=== PATIENT | female | born 1985 | race Caucasian/White ===

== ENCOUNTER 2017-03-10 15:16 | Emergency (ER) | payer OTHER ==
[~2017-03-10] VITALS: Wt 90.0 kg
[~2017-03-10 15:16] MED LIST: PRENAT PO
[2017-03-10] MEDS ORDERED: ONDANSETRON 4 MG INJ IV STA (15:58)
[2017-03-10] MEDS ORDERED: SOD CHLORIDE 0.9% 1,000 ML IV STA (15:58)
[2017-03-10] MEDS ORDERED: KETOROLAC 30 MG INJ IV STA (15:58)
[2017-03-10 16:25] LABS: ADD SCAN DIFF NO
[2017-03-10 16:27] LABS: BASOPHILS % 0.2 % (0.0-2.0); EOSINOPHILS # 0.1 10^3/ul (0.0-0.5); EOSINOPHILS % 0.5 % (0.0-7.0); HEMATOCRIT 34.6 % (37.0-47.0); HEMOGLOBIN 10.8 g/dl (12.0-16.0); LYMPHOCYTES # 1.4 10^3/ul (0.8-2.9); LYMPHOCYTES % 12.3 % (15.0-51.0); MEAN CORPUSCULAR HEMOGLOBIN 24.5 pg (29.0-33.0); MEAN CORPUSCULAR HGB CONC 31.2 g/dl (32.0-37.0); MEAN CORPUSCULAR VOLUME 78.5 fl (82.0-101.0); MONOCYTE # 0.3 10^3/ul (0.3-0.9); MONOCYTES % 2.5 % (0.0-11.0); NEUTROPHIL # 9.7 10^3/ul (1.6-7.5); NEUTROPHILS % 84.2 % (39.0-77.0); PLATELET COUNT 309 10^3/UL (140-415); RED BLOOD COUNT 4.41 10^6/ul (4.20-5.40); RED CELL DISTRIBUTION WIDTH 16.6 % (11.5-14.5); WHITE BLOOD COUNT 11.5 10^3/ul (4.8-10.8)
[2017-03-10 16:29] LABS: ADD UMIC YES; URINE BILIRUBIN (Dip) NEGATIVE (NEGATIVE); URINE BLOOD (Dip) TRACE (NEGATIVE); URINE COLOR LT. YELLOW (YELLOW); URINE GLUCOSE (Dip) NEGATIVE (NEGATIVE); URINE KETONES (Dip) NEGATIVE (NEGATIVE); URINE LEUKOCYTE ESTERASE (Dip) NEGATIVE (NEGATIVE); URINE NITRITE (Dip) NEGATIVE (NEGATIVE); URINE TOTAL PROTEIN (Dip) NEGATIVE (NEGATIVE); URINE UROBILINOGEN (Dip) 0.2 E.U./dL (0.1-1.0)
[2017-03-10 16:44] LABS: BACTERIA,URINE FEW; SQUAMOUS EPITHELIAL CELL,UR MODERATE
[2017-03-10 16:45] LABS: URINE RBCS 0-2 /HPF (0)
--- NOTE | 2017-03-10 16:55 | RADRPT ---
PROCEDURE: US Abdomen. CLINICAL INDICATION: Abdominal pain TECHNIQUE: Multiple real-time images were acquired of the patient's abdomen and retroperitoneum ut ilizing a high resolution transducer. COMPARISON: 01/02/2016 FINDINGS: The liver demonstrates elevated echogenicity with no gross focal lesions are seen. The gallbladder i s resected. No fluid is seen within the gallbladder fossa. No intra or extrahepatic biliary dilatat ion is seen. The common bile duct measures 6 mm in maximal dimension. The pancreas is partially ob scured. No free fluid is identified. The right kidney is unremarkable without hydronephrosis. It measures 10.4 cm. Visualized portion of the aorta and IVC are unremarkable. IMPRESSION: There is fatty infiltration of the liver. Status post cholecystectomy. RPTAT: AA .Cristiana Mora MD, Date Time Electronically viewed and signed by .Cristiana Mora MD, on 03/10/2017 16:55 .J/
[2017-03-10 17:18] LABS: ALBUMIN 4.5 g/dl (3.3-4.9)
[2017-03-10 17:19] LABS: POTASSIUM 3.6 mmol/L (3.5-5.1)
[2017-03-10 17:21] LABS: ALBUMIN/GLOBULIN RATIO 1.04; BILIRUBIN,INDIRECT 0.7 mg/dl (0-1.1); BILIRUBIN,TOTAL 0.7 mg/dl (0.2-1.3); CREATININE 0.61 mg/dl (0.44-1.00); TOTAL PROTEIN 8.8 g/dl (6.1-8.1)
[2017-03-10 17:22] LABS: CALCIUM 8.8 mg/dl (8.4-10.2)
[2017-03-10] MEDS ORDERED: IOHEXOL 300MG/ML 150 ML BTL ONE (17:44)
[2017-03-10] MEDS ORDERED: SOD CHLORIDE 0.9% 100 ML ONE (17:44)
--- NOTE | 2017-03-10 18:26 | RADRPT ---
PROCEDURE: CT abdomen and pelvis with contrast. CLINICAL INDICATION: abdominal pain TECHNIQUE: CT scan of the abdomen and pelvis with contrast [facility] The patient was scanned after administration of 100 cc of Omnipaque-300 intravenous contrast. Sagittal and coronal reformatted images were obtained from the axial source images. One or more of the following dose reduction techniques were used: - Automated exposure control. - Adjustment of the mA and/or kV according to patient size. - Use of iterative reconstruction technique. DLP 974.9 mGycm. CTDIvol 17.3 mGy COMPARISON: None. FINDINGS: The lung bases are clear. There is normal density and enhancement of the liver with no focal lesion or biliary ductal dilatati on. The gallbladder is removed, and the portal vein is intact without thrombus. The spleen is unremarkable without mass. The adrenal glands are within normal limits without mass. The kidneys enhance symmetrically bilaterally without hydronephrosis or perinephric stranding. The pancreas is unremarkable without focal lesion or surrounding inflammatory changes. There is no bowel obstruction or focal bowel inflammation. The appendix is unremarkable. There are surgical changes seen from a prior laparotomy. There is no free air. There is no free fluid. There are no enlarged lymph nodes. The aorta is unremarkable and there is no acute osseous abnormality. The uterus and adnexal structures are grossly within normal limits. Follicular changes seen within t he ovaries bilaterally. IMPRESSION: No evidence of bowel obstruction or inflammation. There is no appendicitis. Surgical changes are seen from prior laparotomy and from cholecystectomy. RPTAT: AA .Cristiana Mora MD, MD Date Time Electronically viewed and signed by .Cristiana Mora MD, MD on 03/10/2017 18:26 .Melquiades/
--- NOTE | 2017-03-10 18:30 | ERD ---
ER Documentation Chief Complaint Date/Time DATE: 03/10/17 Chief Complaint Abdominal pain, Nausea, Vomiting, Fever HPI The patient is a 31-year-old who presents to the Emergency Department with complaint of abdominal pain, nausea and vomiting. The patent reports that approximately 3 days ago she developed a cramping pain to the epigastric region of the abdomen. The pain is constant, cramping, and radiates throughout the abdomen, but is mostly localized to the epigastrium. The pain is associated with nausea, and several episodes of nonbilious, nonbloody emesis. The patient reports three episodes of vomiting yesterday, and four today. Additionally, she notes onset of low-grade fevers today, though has not taken any medication for fever or pain relief. She denies any diarrhea. Denies black or bloody stools. Denies hematemesis. Denies recent travel, stream water exposure, immunocompromised state or recent antibiotic use. Denies hematemesis. Denies dysuria, polyuria, hematuria or flank pain. Denies vaginal bleeding or new vaginal discharge. Denies contacts with similar symptoms. No other complaints at this time. ROS All systems reviewed and are negative except as per history of present illness. Medications Home Meds Active Scripts Famotidine* (Pepcid*) 20 Mg Tablet, 20 MG PO BID, #20 TAB Prov:USAMA GILLIAM PA-C 03/10/17 Acetaminophen* (Tylenol*) 325 Mg Tablet, 1 TAB PO Q6 Y for PAIN AND OR ELEVATED TEMP, #20 TAB Prov:USAMA GILLIAM PA-C 03/10/17 Ondansetron (Ondansetron Odt) 4 Mg Tab.rapdis, 4 MG PO Q6H Y for NAUSEA AND/OR VOMITING, #8 TAB Prov:USAMA GILLIAM PA-C 03/10/17 Reported Medications Multivit/Min/Fol Ac/Iron/Pren* ( S*) 1 Tab Tab, 1 TAB PO DAILY, TAB 02/28/16 Allergies Allergies: Coded Allergies: No Known Allergy (Verified , 02/28/16) PMhx/Soc History of Surgery: Yes ( x1) Anesthesia Reaction: No Hx Neurological Disorder: No Hx Respiratory Disorders: No Hx Cardiac Disorders: No Hx Psychiatric Problems: No Hx Miscellaneous Medical Probl: Yes (Cholecystitis) Hx Alcohol Use: No Hx Substance Use: No Hx Tobacco Use: No Smoking Status: Never smoker Physical Exam Vitals Vital Signs Date Time Temp Pulse Resp B/P Pulse Ox O2 Delivery O2 Flow Rate FiO2 03/10/17 18:42 98.9 82 20 108/88 100 Room Air 03/10/17 15:20 100.0 102 21 126/81 100 Physical Exam GENERAL: Well-developed, well-nourished, in no acute distress HEENT: Head is normocephalic, atraumatic. No scleral pallor or icterus. Pupils equal, round and reactive to light. Conjunctiva pink. Moist mucous membranes. NECK: Supple. Full range of motion. RESPIRATORY: Lungs are clear to auscultation bilaterally. No rales, rhonchi or wheezing. Equal breath sounds. Normal expiratory effort. CARDIOVASCULAR: Regular rate and rhythm. S1 and S2 normal. No murmurs, rubs, or gallops. GASTROINTESTINAL: Abdomen is soft and nondistended. Mild tenderness to palpation over the epigastrium. No guarding, no rebound tenderness. Normal bowel sounds. No gross peritonitis. Negative Singh's sign. No tenderness at McBurney's point. No ecchymosis. FLANK: No CVA tenderness, no mass or swelling. BACK: No midline tenderness. EXTREMITIES: No clubbing, cyanosis, or edema. Normal skin perfusion. Muscle tone is normal. No focal swelling or erythema. NEUROLOGIC: The patient is alert, awake, and oriented x 3. No focal neurologic deficits. INTEGUMENT: Skin is clean, dry and intact. No rashes. No vesicles. PSYCHIATRIC: Appropriate; Cooperative. Result Diagram: 03/10/17 1620 03/10/17 1620 Results 24 hrs Laboratory Tests Test 03/10/17 16:02 03/10/17 16:20 Urine Color LT. YELLOW Urine Clarity SLIGHTLY CLOUDY Urine pH 7.0 Urine Specific [place] 1.010 Urine Ketones NEGATIVE Urine Nitrite NEGATIVE Urine Bilirubin NEGATIVE Urine Urobilinogen 0.2 E.U./dL Urine Leukocyte Esterase NEGATIVE Urine Microscopic RBC 0-2/HPF Urine Microscopic WBC 0-2/HPF Urine Squamous Epithelial Cells MODERATE Urine Bacteria FEW Urine Hemoglobin TRACE Urine Glucose NEGATIVE% Urine Total Protein NEGATIVE White Blood Count 11.510^3/ul Red Blood Count 4.4110^6/ul Hemoglobin 10.8g/dl Hematocrit 34.6% Mean Corpuscular Volume 78.5fl Mean Corpuscular Hemoglobin 24.5pg Mean Corpuscular Hemoglobin Concent 31.2g/dl Red Cell Distribution Width 16.6% Platelet Count 71264^3/UL Mean Platelet Volume 12.0fl Neutrophils % 84.2% Lymphocytes % 12.3% Monocytes % 2.5% Eosinophils % 0.5% Basophils % 0.2% Nucleated Red Blood Cells % 0.0/100WBC Neutrophils # 9.710^3/ul Lymphocytes # 1.410^3/ul Monocytes # 0.310^3/ul Eosinophils # 0.110^3/ul Basophils # 0.010^3/ul Nucleated Red Blood Cells # 0.010^3/ul Sodium Level 140mmol/L Potassium Level 3.6mmol/L Chloride Level 108mmol/L Carbon Dioxide Level 25mmol/L Anion Gap 11 Blood Urea Nitrogen 6mg/dl Creatinine 0.61mg/dl Glucose Level 102mg/dl Calcium Level 8.8mg/dl Total Bilirubin 0.7mg/dl Direct Bilirubin 0.00mg/dl Indirect Bilirubin 0.7mg/dl Aspartate Amino Transf (AST/SGOT) 32IU/L Alanine Aminotransferase (ALT/SGPT) 42IU/L Alkaline Phosphatase 128IU/L Total Protein 8.8g/dl Albumin 4.5g/dl Globulin 4.30g/dl Albumin/Globulin Ratio 1.04 Lipase 64U/L Current Medications Medications (Trade) Dose Ordered Sig/Daniel Route PRN Reason Start Time Stop Time Status Last Admin Dose Admin Sodium Chloride (NS) 1,000 ml @ 1,000 mls/hr Q1H STAT IV 03/10/17 15:58 03/10/17 16:57 DC 03/10/17 16:22 Ondansetron HCl (Zofran Inj) 4 mg ONCE STAT IV 03/10/17 15:58 03/10/17 16:00 DC 03/10/17 16:21 Ketorolac Tromethamine (Toradol) 30 mg ONCE STAT IV 03/10/17 15:58 03/10/17 16:00 DC 03/10/17 16:22 IV Flush 10 ml 10 ml STK-MED ONCE .ROUTE 03/10/17 17:44 03/10/17 17:45 DC 03/10/17 18:03 Sodium Chloride (NS) 100 ml @ ud STK-MED ONCE .ROUTE 03/10/17 17:44 03/10/17 17:45 DC 03/10/17 18:03 Iohexol (Omnipaque 300mg/ ml) 150 ml STK-MED ONCE .ROUTE 03/10/17 17:44 03/10/17 17:45 DC 03/10/17 18:04 Procedures/[facility] EMERGENCY [facility]PARTMENT COURSE: The patient was stable throughout the ER course. She was give fluids, Toradol and Zofran. Diagnostic imaging was performed. Upon reassessment, the patient remained stable, and stated that her symptoms had improved. She had no episodes of emesis or diarrhea while in the emergency department. The case was reviewed and discussed with Dr. Kasper, who agrees with the plan of care including labs, treatment and advanced imaging as appropriate. DIAGNOSTIC TESTS AND INTERPRETATION: PROCEDURE: US Abdomen. CLINICAL INDICATION: Abdominal pain TECHNIQUE: Multiple real-time images were acquired of the patient's abdomen and retroperitoneum utilizing a high resolution transducer. COMPARISON: 01/02/2016 FINDINGS: The liver demonstrates elevated echogenicity with no gross focal lesions are seen. The gallbladder is resected. No fluid is seen within the gallbladder fossa. No intra or extrahepatic biliary dilatation is seen. The common bile duct measures 6 mm in maximal dimension. The pancreas is partially obscured. No free fluid is identified. The right kidney is unremarkable without hydronephrosis. It measures 10.4 cm. Visualized portion of the aorta and IVC are unremarkable. IMPRESSION: There is fatty infiltration of the liver. Status post cholecystectomy. .Cristiana Mora MD, MD Date Time Electronically viewed and signed by .Cristiana Mora MD, on 03/10/2017 16:55 PROCEDURE: CT abdomen and pelvis with contrast. CLINICAL INDICATION: abdominal pain TECHNIQUE: CT scan of the abdomen and pelvis with contrast was performed on a multi-slice CT scanner . The patient was scanned after administration of 100 cc of Omnipaque-300 intravenous contrast. Sagittal and coronal reformatted images were obtained from the axial source images. One or more of the following dose reduction techniques were used: - Automated exposure control. - Adjustment of the mA and/or kV according to patient size. - Use of iterative reconstruction technique. DLP 974.9 mGycm. CTDIvol 17.3 mGy COMPARISON: None. FINDINGS: The lung bases are clear. There is normal density and enhancement of the liver with no focal lesion or biliary ductal dilatation. The gallbladder is removed, and the portal vein is intact without thrombus. The spleen is unremarkable without mass. The adrenal glands are within normal limits without mass. The kidneys enhance symmetrically bilaterally without hydronephrosis or perinephric stranding. The pancreas is unremarkable without focal lesion or surrounding inflammatory changes. There is no bowel obstruction or focal bowel inflammation. The appendix is unremarkable. There are surgical changes seen from a prior laparotomy. There is no free air. There is no free fluid. There are no enlarged lymph nodes. The aorta is unremarkable and there is no acute osseous abnormality. The uterus and adnexal structures are grossly within normal limits. Follicular changes seen within the ovaries bilaterally. IMPRESSION: No evidence of bowel obstruction or inflammation. There is no appendicitis. Surgical changes are seen from prior laparotomy and from cholecystectomy. .Cristiana Mora MD, MD Date Time Electronically viewed and signed by .Cristiana Mora MD, on 03/10/2017 18:26 MEDICAL DECISION MAKING: This is a 31-year-old female presenting to the Emergency Department with complaint of epigastric abdominal pain, nausea, vomiting and low-grade fevers. On physical examination, the patient had mild tenderness to palpation over the epigastrium. Otherwise, no guarding, no rebound tenderness, no gross peritonitis. Differential diagnosis includes, but is not limited to, gastroenteritis, gastritis, cholecystitis, cholangitis, choledocholithiasis, pancreatitis, perforated viscus, mesenteric ischemia, GERD , PUD, urinary tract infection, acute coronary syndrome, pyelonephritis, pneumonia, hepatitis, infectious diarrhea, IBD, aortic dissection, torsion, bowel obstruction, appendicitis, diverticulitis. No significant acute abnormalities were noted on laboratory or imaging modalities ordered. Hemoglobin and hematocrit decreased, and patient advised to take ferrous sulfate , but otherwise, no evidence of severe anemia requiring transfusion. No signs of GI bleed. No significant electrolyte abnormalities. After rest and administration of fluids and medications, the patient reports no new complaints and much decreased pain and symptoms. Upon review and interpretation of the patient's presentation and overall ER course, I believe the patient's symptoms are most consistent with epigastric abdominal pain, febrile illness, nausea and vomiting, uncertain etiology, but possibly secondary to gastroenteritis (likely viral). I doubt cholecystitis/ choledocholithiasis/cholangitis, no abnormalities or indication of disease process noted on ultrasound, negative Singh's sign, laboratory values inconsistent. Doubt acute coronary syndrome - symptoms and examination inconsistent. Doubt pancreatitis - clinical presentation inconsistent. Doubt perforated ulcer, patient has a non-surgical abdomen. Doubt small bowel obstruction, patient is passing flatus, abdomen is non-distended. Doubt appendicitis, patient has no McBurney's point tenderness, no guarding, non- surgical abdomen, no tenderness over the RLQ. Doubt diverticulitis, exam inconsistent. Doubt ischemic bowel, no pain out of proportion to examination. Doubt torsion, symptoms and examination inconsistent. At this time, the patient is in stable condition and therefore she can be discharged home with prescriptions for Zofran, Pepcid and Tylenol, and strict return precautions for signs of deteriorating or worsening condition. She is advised to follow up with her primary care provider in 1-2 days for reevaluation and further management, or return to the ER sooner if symptoms worsen. I shared my medical decision making, plan, as well as the results with the patient at length and in great detail, and she verbally understands and agrees with the plan for further observation and care as an outpatient. At the time of discharge, all questions were answered. Departure Diagnosis: Primary Impression: Abdominal pain Abdominal location: epigastric Qualified Code: R10.13 - Epigastric pain Additional Impressions: Vomiting Vomiting type: unspecified Vomiting Intractability: non-intractable Nausea presence: with nausea Qualified Code: R11.2 - Non-intractable vomiting with nausea, unspecified vomiting type Acute febrile illness Condition: Stable Patient Instructions: Abdominal Pain, Gastroenteritis, Non-Infectious (Child) ( Adult), Vomiting (6Y-Adult) Additional Instructions: Call your primary care doctor TOMORROW for an appointment during the next 1-2 days.See the doctor sooner or return here if your condition worsens before your appointment time. USAMA GILLIAM PA-C March 10, 2017 18:29
[2017-03-10] MEDS ORDERED: ONDA4TAB14 PO (18:31)
[2017-03-10] MEDS ORDERED: ACET325T33 PO (18:31)
[2017-03-10] MEDS ORDERED: FAMO-18 PO (18:31)
[2017-03-10 18:42] VITALS: BP 108/88; PULSE 82; RESP 20; TEMP 98.9
== END 2017-03-10 18:43 | disposition home or self-care (01) ==
LOC: FTE 15:16
DX: R10.13 Epigastric pain (principal); R11.2 Nausea with vomiting, unspecified; R50.9 Fever, unspecified
CPT/HCPCS: 74177; 76705; 80053; 81001; 83690; 85025; J1885; J2405; J7030; Q9967; Z7610; 36415; 96374; 96375

== ENCOUNTER 2017-05-29 07:54 | Emergency (ER) | payer OTHER ==
[~2017-05-29] VITALS: Ht 165.1 cm; Wt 83.5 kg
[~2017-05-29 07:54] MED LIST changes: +ACET325T33 PO; +FAMO-96 PO; +ONDA4TAB14 PO
[2017-05-29 07:55] VITALS: Ht 165.1 cm; Wt 83.5 kg
[2017-05-29] MEDS ORDERED: ONDANSETRON 4 MG INJ IV STA (08:04)
[2017-05-29] MEDS ORDERED: morphine 4 MG/ML VIAL IV STA (08:04)
[2017-05-29] MEDS ORDERED: SOD CHLORIDE 0.9% 1,000 ML IV STA (08:04)
--- NOTE | 2017-05-29 08:14 | ERD ---
ER Documentation Chief Complaint Date/Time DATE: 05/29/17 TIME: 08:10 Chief Complaint pt bib self with c/o abd pain and vomiting x 3 days HPI 31-year-old female, status post cholecystectomy 3 years ago, presents emergency department for complaints of intermittent, 7 out of 10, burning epigastric pain 3 days. Patient states the pain occasionally radiates to the right upper quadrant and is associated with 5 episodes of diarrhea which occurred 48 hours ago but has since subsided. Patient notes vomiting 5 yesterday which is also subsided. She states she has felt warm but has not measured her temperature at home. Patient denies any lower abdominal pain, chest pain, shortness of breath , dysuria, hematuria, vaginal discharge. She states her last menstrual period was 5 days ago and normal for her. Patient denies any smoking or drug use. She denies any history of sudden related to cardiac history within her family or personal history of cardiac disease. Patient states she has not experienced any problems since her cholecystectomy 3 years ago. ROS All systems reviewed and are negative except as per history of present illness. Medications Home Meds Active Scripts Famotidine* (Pepcid*) 20 Mg Tablet, 20 MG PO BID, #20 TAB Prov:USAMA GILLIAM PA-C 03/10/17 Acetaminophen* (Tylenol*) 325 Mg Tablet, 1 TAB PO Q6 Y for PAIN AND OR ELEVATED TEMP, #20 TAB Prov:USAMA GILLIAM PA-C 03/10/17 Ondansetron (Ondansetron Odt) 4 Mg Tab.rapdis, 4 MG PO Q6H Y for NAUSEA AND/OR VOMITING, #8 TAB Prov:USAMA GILLIAM PA-C 03/10/17 Reported Medications Multivit/Min/Fol Ac/Iron/Pren* ( S*) 1 Tab Tab, 1 TAB PO DAILY, TAB 02/28/16 Allergies Allergies: Coded Allergies: No Known Allergy (Verified , 02/28/16) PMhx/Soc History of Surgery: Yes ( x1, Cholecystectomy) Anesthesia Reaction: No Hx Neurological Disorder: No Hx Respiratory Disorders: No Hx Cardiac Disorders: No Hx Psychiatric Problems: No Hx Miscellaneous Medical Probl: Yes (Cholecystitis) Hx Alcohol Use: No Hx Substance Use: No Hx Tobacco Use: No Smoking Status: Never smoker Physical Exam Vitals Vital Signs Date Time Temp Pulse Resp B/P Pulse Ox O2 Delivery O2 Flow Rate FiO2 05/29/17 07:55 98.3 87 16 117/65 98 Physical Exam Const: Well-developed, well-nourished, no acute distress Head: Atraumatic Neck: Full range of motion..~ No meningismus. Resp: Clear to auscultation bilaterally Cardio: Regular rate and rhythm, no murmurs Abd: Soft, non tender, non distended. Normal bowel sounds. Negative McBurney sign. Negative Singh sign. Skin: No petechiae or rashes Back: No midline or flank tenderness Ext: No cyanosis, or edema Neur: Awake and alert Psych: Normal Mood and Affect Result Diagram: 05/29/17 0826 05/29/17 0911 Results 24 hrs Laboratory Tests Test 05/29/17 08:26 05/29/17 09:11 White Blood Count 6.610^3/ul Red Blood Count 4.2310^6/ul Hemoglobin 9.4g/dl Hematocrit 31.0% Mean Corpuscular Volume 73.3fl Mean Corpuscular Hemoglobin 22.2pg Mean Corpuscular Hemoglobin Concent 30.3g/dl Red Cell Distribution Width 16.8% Platelet Count 21423^3/UL Mean Platelet Volume 12.3fl Neutrophils % 67.8% Lymphocytes % 21.2% Monocytes % 6.6% Eosinophils % 3.7% Basophils % 0.5% Nucleated Red Blood Cells % 0.0/100WBC Neutrophils # (Manual) 4.510^3/ul Lymphocytes # 1.410^3/ul Monocytes # 0.410^3/ul Eosinophils # 0.210^3/ul Basophils # 0.010^3/ul Nucleated Red Blood Cells # 0.010^3/ul Urine Color YELLOW Urine Clarity CLOUDY Urine pH 6.0 Urine Specific [place] 1.011 Urine Ketones NEGATIVEmg/dL Urine Nitrite NEGATIVEmg/dL Urine Bilirubin NEGATIVEmg/dL Urine Urobilinogen NEGATIVEmg/dL Urine Leukocyte Esterase TRACELeu/ul Urine Microscopic RBC 5/HPF Urine Microscopic WBC 7/HPF Urine Squamous Epithelial Cells MODERATE/HPF Urine Mucus FEW/HPF Urine Hemoglobin 3+mg/dL Urine Glucose NEGATIVEmg/dL Urine Total Protein 1+mg/dl Sodium Level 138mmol/L Potassium Level 4.4mmol/L Chloride Level 108mmol/L Carbon Dioxide Level 25mmol/L Anion Gap 9 Blood Urea Nitrogen 5mg/dl Creatinine 0.58mg/dl Glucose Level 93mg/dl Calcium Level 8.0mg/dl Total Bilirubin 0.2mg/dl Direct Bilirubin 0.00mg/dl Indirect Bilirubin 0.2mg/dl Aspartate Amino Transf (AST/SGOT) 18IU/L Alanine Aminotransferase (ALT/SGPT) 31IU/L Alkaline Phosphatase 75IU/L Total Protein 6.8g/dl Albumin 3.5g/dl Globulin 3.30g/dl Albumin/Globulin Ratio 1.06 Lipase 87U/L Current Medications Medications (Trade) Dose Ordered Sig/Dainel Route PRN Reason Start Time Stop Time Status Last Admin Dose Admin Sodium Chloride (NS) 1,000 ml @ 1,000 mls/hr Q1H STAT IV 05/29/17 08:04 05/29/17 09:03 DC 05/29/17 08:35 Morphine Sulfate (morphine) 4 mg ONCE STAT IV 05/29/17 08:04 05/29/17 08:09 DC 05/29/17 08:35 Ondansetron HCl 4 mg 4 mg ONCE STAT IV 05/29/17 08:04 05/29/17 08:09 DC 05/29/17 08:35 Sodium Chloride (NS) 1,000 ml @ 1,000 mls/hr Q1H ONCE IV 05/29/17 08:30 05/29/17 09:29 DC Procedures/MDM PROCEDURE: US Abdomen Limited . CLINICAL INDICATION: Abdominal pain TECHNIQUE: Multiple real-time images were acquired of the patient's right upper quadrant abdomen utilizing a high resolution transducer. COMPARISON: March 10, 2017 FINDINGS: The liver measures 17.4 cm and demonstrates a coarsened echogenicity. The gallbladder has been removed. The common bile duct measures 8.2 mm in diameter. The pancreas is not well visualized. Antegrade flow is seen in the portal vein. Right kidney measures 10.1 cm. Right kidney demonstrates a normal echogenicity. No hydronephrosis, masses or stones are noted. IMPRESSION: Diffuse fatty infiltration of the liver. Status post cholecystectomy. Pancreas not well visualized. If characterization of this structure is needed repeat exam or CT/MRI is recommended. RPTAT: AA .Obed Bhatia MD, MD Date Time Electronically viewed and signed by .Obed Bhatia MD, MD on 05/29/2017 08:54 .P/ CC: TEO FERNANDES PA-C This is an 31-year-old female with a history of cholecystectomy 3 years ago who presents for a 2 day history of epigastric abdominal pain which is associated with diarrhea and vomiting. Vital signs reviewed. Patient afebrile, non- tachycardic, normotensive and non-hypoxic upon arrival. Patient well-appearing , nontoxic, and in no acute distress upon arrival. Upon physical exam patient was nontender to palpation of her abdomen in all 4 quadrants. Patient did not exhibit any flank tenderness. Patient denied any personal or family history of cardiac disease and denies any chest pain or shortness of breath upon arrival. This time low suspicion for acute coronary syndrome. CBC showed no evidence of systemic infection or severe anemia. Patient mildly anemic with a hemoglobin of 9.4 however patient is currently on her menstrual cycle. CMP showed no evidence of electrolyte abnormalities, severe acidosis, alkalosis , renal failure, or liver disease. Lipase showed no evidence of acute pancreatitis. UA showed no evidence of Nitrites, leukocyte esterase, or ketones. Hematuria was noted however patient's currently on her menstrual cycle. Urine test was negative. Patient received a bolus of fluids as well as pain and nausea medication while in the emergency department and reported significant improvement of her symptoms. Abdominal ultrasound revealed evidence of common bile duct measured at 8.3 mm. Patient with history of cholecystectomy. There is no evidence of stones which were visible on ultrasound. Patient was nontender to palpation. Results discussed with Dr. Parada. At this time I have low suspicion for acute choledocholithiasis, hepatitis, pancreatitis, small bowel obstruction, pyelonephritis, appendicitis, acute coronary syndrome, pulmonary embolism, ectopic , severe systemic illness or sepsis. Patient's abdominal pain, nausea, and vomiting likely the result of an acute viral syndrome. Instructed the patient to return promptly to the emergency department if her symptoms should worsen over the next 8-12 hours. Based on patient's history of present illness and physical examination the decision was made to discharge. The patient was re-evaluated after ED treatment and stabilizing measures, and symptoms have improved. There is no evidence of life threatening injuries or illnesses at this time. On re-examination, patient resting in no distress, stable vital signs, reports feeling better and safe for discharge with outpatient follow up with PMD in 1-2 days. Patient given return precautions. Departure Diagnosis: Primary Impression: Vomiting and diarrhea Additional Impression: Epigastric abdominal pain TEO FERNANDES PA-C May 29, 2017 08:13
[2017-05-29] MEDS ORDERED: SOD CHLORIDE 0.9% 1,000 ML IV ONE (08:30)
[2017-05-29 08:41] LABS: BASOPHILS % 0.5 % (0.0-2.0); EOSINOPHILS # 0.2 10^3/ul (0.0-0.5); EOSINOPHILS % 3.7 % (0.0-7.0); HEMOGLOBIN 9.4 g/dl (12.0-16.0); LYMPHOCYTES # 1.4 10^3/ul (0.8-2.9); LYMPHOCYTES % 21.2 % (15.0-51.0); MEAN CORPUSCULAR HEMOGLOBIN 22.2 pg (29.0-33.0); MEAN CORPUSCULAR HGB CONC 30.3 g/dl (32.0-37.0); MEAN CORPUSCULAR VOLUME 73.3 fl (82.0-101.0); MEAN PLATELET VOLUME 12.3 fl (7.4-10.4); MONOCYTE # 0.4 10^3/ul (0.3-0.9); MONOCYTES % 6.6 % (0.0-11.0); NEUTROPHILS % 67.8 % (39.0-77.0); PLATELET COUNT 266 10^3/UL (140-415); RED BLOOD COUNT 4.23 10^6/ul (4.20-5.40); RED CELL DISTRIBUTION WIDTH 16.8 % (11.5-14.5); WHITE BLOOD COUNT 6.6 10^3/ul (4.8-10.8)
--- NOTE | 2017-05-29 08:54 | RADRPT ---
PROCEDURE: US Abdomen Limited . CLINICAL INDICATION: Abdominal pain TECHNIQUE: Multiple real-time images were acquired of the patient's right upper quadrant abdomen u tilizing a high resolution transducer. COMPARISON: March 10, 2017 FINDINGS: The liver measures 17.4 cm and demonstrates a coarsened echogenicity. The gallbladder has been remov ed. The common bile duct measures 8.2 mm in diameter. The pancreas is not well visualized. Antegrade flow is seen in the portal vein. Right kidney measures 10.1 cm. Right kidney demonstrates a normal echogenicity. No hydronephrosis, masses or stones are noted. IMPRESSION: Diffuse fatty infiltration of the liver. Status post cholecystectomy. Pancreas not well visualized. If characterization of this structure is needed repeat exam or CT/MRI is recommended. RPTAT: AA .Obed Bhatia MD, Date Time Electronically viewed and signed by .Obed Bhatia MD, on 05/29/2017 08:54 .P/
[2017-05-29 08:56] LABS: ADD UMIC YES; UR ASCORBIC ACID NEGATIVE (NEGATIVE); UR BILIRUBIN (Dip) NEGATIVE (NEGATIVE); UR BLOOD (Dip) 3+ mg/dL (NEGATIVE); UR CLARITY CLOUDY (CLEAR); UR COLOR YELLOW (YELLOW); UR GLUCOSE (Dip) NEGATIVE (NEGATIVE); UR KETONES (Dip) NEGATIVE (NEGATIVE); UR LEUKOCYTE ESTERASE (Dip) TRACE Leu/ul (NEGATIVE); UR MUCUS FEW /HPF (NONE SEEN); UR NITRITE (Dip) NEGATIVE (NEGATIVE); UR RBC 5 /HPF (0-5); UR SPECIFIC GRAVITY (Dip) 1.011 (1.003-1.030); UR SQUAMOUS EPITHELIAL CELL MODERATE /HPF (FEW); UR TOTAL PROTEIN (Dip) 1+ mg/dl (NEGATIVE); UR UROBILINOGEN (Dip) NEGATIVE (NEGATIVE); UR WBC CLUMPS FEW /HPF (NONE SEEN)
[2017-05-29 09:41] LABS: ALBUMIN 3.5 g/dl (3.3-4.9); ALBUMIN/GLOBULIN RATIO 1.06; BILIRUBIN,INDIRECT 0.2 mg/dl (0-1.1); BILIRUBIN,TOTAL 0.2 mg/dl (0.2-1.3); CREATININE 0.58 mg/dl (0.44-1.00); POTASSIUM 4.4 mmol/L (3.5-5.1); TOTAL PROTEIN 6.8 g/dl (6.1-8.1)
[2017-05-29 09:50] LABS: ANISOCYTOSIS 2+ (0-0); EOSINOPHILS % (M) 3 % (0-7); HYPOCHROMASIA 3+ (0-0); MICROCYTOSIS 2+ (0-0); MONOCYTES % (M) 2 % (0-11); PLATELET ESTIMATE NORMAL; POIKILOCYTOSIS 1+ (0-0)
[2017-05-29] MEDS ORDERED: ELEC100080 PO (09:54)
[2017-05-29] MEDS ORDERED: ONDA4TAB14 PO (09:54)
[2017-05-29] MEDS ORDERED: IBUP-1542 PO (09:54)
== END 2017-05-29 10:02 | disposition home or self-care (01) ==
LOC: FTE 07:54
DX: R11.10 Vomiting, unspecified (principal); R19.7 Diarrhea, unspecified
CPT/HCPCS: 36415; 76705; 80053; 81001; 83690; 85025; 96374; 96375; J2270; J2405; J7030; Z7502

== ENCOUNTER 2018-03-09 08:31 | Emergency (ER) | END 2018-03-09 10:02 | disposition home or self-care (01) ==

== ENCOUNTER 2018-11-30 12:04 | Emergency (ER) | payer OTHER ==
[~2018-11-30] VITALS: Ht 165.1 cm; Wt 92.4 kg
[~2018-11-30 12:04] MED LIST changes: +ELEC100080 PO; +IBUP-1542 PO; +POLY10DR19 BOTH EYES
[2018-11-30 12:10] VITALS: Ht 165.1 cm; Wt 92.4 kg
[2018-11-30] MEDS ORDERED: SOD CHLORIDE 0.9% 1,000 ML IV STA (14:04)
[2018-11-30] MEDS ORDERED: KETOROLAC 15 MG INJ IV STA (14:04)
[2018-11-30] MEDS ORDERED: ONDANSETRON 4 MG INJ IV STA (14:04)
--- NOTE | 2018-11-30 14:35 | ERD ---
ER Documentation Chief Complaint Chief Complaint epigastric pain with nausea x 3 days HPI 33-year-old female with past medical history of cholecystitis post cholecystectomy presenting to the emergency department complaining of midepi gastric pain for the past 5 days. Symptoms are rated 8/10 in severity and constant. She denies radiation of the pain. She did have one episode of nonbilious and nonbloody vomiting yesterday but has had no vomiting today. She denies any fevers, cough, body aches, or other symptoms at this time. ROS All systems reviewed and are negative except as per history of present illness. Medications Home Meds Active Scripts Ondansetron (Ondansetron Odt) 4 Mg Tab.rapdis, 4 MG PO Q6H PRN for NAUSEA AND/OR VOMITING, #10 TAB Prov:PHYLLIS ANG PA-C 11/30/18 Omeprazole* (Omeprazole*) 20 Mg Capsule.dr, 20 MG PO DAILY, #14 Prov:PHYLLIS ANG PA-C 11/30/18 Polymyxin B Sulfate-TMP* (Polymyxin B-TMP Eye Drops*) 10 Ml Drops, 1 DROP BOTH EYES QID for 7 Days, EA Prov:KATELYN CHILEL PA-C 03/09/18 Electrolyte,Oral (Pedialyte) 1,000 Ml Solution, 100 ML PO Q6 PRN for VOMITTING for 7 Days, ML Prov:TEO FERNANDES PA-C 05/29/17 Ibuprofen* (Motrin*) 600 Mg Tab, 600 MG PO Q6, #30 TAB Prov:TEO FERNANDES PA-C 05/29/17 Ondansetron (Ondansetron Odt) 4 Mg Tab.rapdis, 4 MG PO Q6H PRN for NAUSEA AND/OR VOMITING, #20 TAB Prov:TEO FERNANDES PA-C 05/29/17 Famotidine* (Pepcid*) 20 Mg Tablet, 20 MG PO BID, #20 TAB Prov:USAMA GILLIAM PA-C 03/10/17 Acetaminophen* (Tylenol*) 325 Mg Tablet, 1 TAB PO Q6 PRN for PAIN AND OR ELEVATED TEMP, #20 TAB Prov:USAMA GILLIAM PA-C 03/10/17 Ondansetron (Ondansetron Odt) 4 Mg Tab.rapdis, 4 MG PO Q6H PRN for NAUSEA AND/OR VOMITING, #8 TAB Prov:USAMA GILLIAM PA-C 03/10/17 Reported Medications Multivit/Min/Fol Ac/Iron/Pren* ( S*) 1 Tab Tab, 1 TAB PO DAILY, TAB 02/28/16 Allergies Allergies: Coded Allergies: No Known Allergy (Verified , 03/09/18) PMhx/Soc History of Surgery: Yes ( x1, Cholecystectomy) Anesthesia Reaction: No Hx Neurological Disorder: No Hx Respiratory Disorders: No Hx Cardiac Disorders: No Hx Psychiatric Problems: No Hx Miscellaneous Medical Probl: Yes (Cholecystitis) Hx Alcohol Use: No Hx Substance Use: No Hx Tobacco Use: No Smoking Status: Never smoker FmHx Family History: No diabetes Physical Exam Vitals Vital Signs Date Temp Pulse Resp B/P (MAP) Pulse Ox O2 O2 Flow FiO2 Time Delivery Rate 11/30/18 98.6 76 18 112/62 98 Room Air 16:01 (79) 11/30/18 98.6 90 18 115/55 98 12:10 (75) Physical Exam Const: No acute distress Head: Atraumatic Eyes: Normal Conjunctiva ENT: Normal External Ears, Nose and Mouth. Neck: Full range of motion. No meningismus. Resp: Clear to auscultation bilaterally Cardio: Regular rate and rhythm, no murmurs Abd: Soft, mild tenderness palpation in the midepigastrium in the right lower quadrant, no rebound tenderness or guarding, non distended. Normal bowel sounds Skin: No petechiae or rashes Ext: No cyanosis, or edema Neur: Awake and alert Psych: Normal Mood and Affect Result Diagram: 11/30/18 1419 11/30/18 1419 Results 24 hrs Laboratory Tests Test 11/30/18 14:18 11/30/18 14:19 11/30/18 14:28 Prothrombin Time 12.7 Sec Prothrombin Time Ratio 1.0 INR International 0.94 Normalized Ratio Activated Partial Thromboplast 29.2 Sec Time White Blood Count 12.5 10^3/ul Red Blood Count 4.83 10^6/ul Hemoglobin 9.4 g/dl Hematocrit 32.8 % Mean Corpuscular Volume 67.9 fl Mean Corpuscular Hemoglobin 19.5 pg Mean Corpuscular 28.7 g/dl Hemoglobin Concent Red Cell Distribution Width 18.6 % Platelet Count 343 10^3/UL Mean Platelet Volume 10.9 fl Immature Granulocytes % 0.400 % Neutrophils % 57.3 % Lymphocytes % 30.7 % Monocytes % 6.3 % Eosinophils % 4.3 % Basophils % 1.0 % Nucleated Red Blood Cells % 0.0 /100WBC Immature Granulocytes # 0.050 10^3/ul Neutrophils # 7.2 10^3/ul Lymphocytes # 3.8 10^3/ul Monocytes # 0.8 10^3/ul Eosinophils # 0.5 10^3/ul Basophils # 0.1 10^3/ul Nucleated Red Blood Cells # 0.0 10^3/ul Urine Color STRAW Urine Clarity CLEAR Urine pH 7.0 Urine Specific [place] 1.005 Urine Ketones NEGATIVE mg/dL Urine Nitrite NEGATIVE mg/dL Urine Bilirubin NEGATIVE mg/dL Urine Urobilinogen NEGATIVE mg/dL Urine Leukocyte Esterase NEGATIVE Anila/ul Urine Hemoglobin NEGATIVE mg/dL Urine Glucose NEGATIVE mg/dL Urine Total Protein NEGATIVE mg/dl Sodium Level 139 mmol/L Potassium Level 4.1 mmol/L Chloride Level 102 mmol/L Carbon Dioxide Level 28 mmol/L Anion Gap 9 Blood Urea Nitrogen 8 mg/dl Creatinine 0.53 mg/dl Est Glomerular Filtrat > 60 mL/min Rate mL/min Glucose Level 95 mg/dl Calcium Level 9.6 mg/dl Total Bilirubin 0.1 mg/dl Direct Bilirubin 0.00 mg/dl Indirect Bilirubin 0.1 mg/dl Aspartate Amino Transf (AST/SGOT) 22 IU/L Alanine 13 IU/L Aminotransferase (ALT/SGPT) Alkaline Phosphatase 93 IU/L Total Protein 9.1 g/dl Albumin 4.6 g/dl Globulin 4.50 g/dl Albumin/Globulin Ratio 1.02 Lipase 125 U/L POC Beta HCG, Qualitative NEGATIVE Current Medications Medications Dose Sig/Daniel Start Time Status Last (Trade) Ordered Route PRN Stop Time Admin Dose Reason Admin Sodium 1,000 ml @ Q1H STAT 11/30/18 DC 11/30/18 Chloride 1,000 mls/hr IV 14:04 14:47 11/30/18 15:03 Ondansetron 4 mg ONCE STAT 11/30/18 DC 11/30/18 HCl (Zofran IV 14:04 14:47 Inj) 11/30/18 14:06 Ketorolac 15 mg ONCE STAT 11/30/18 DC 11/30/18 Tromethamine IV 14:04 14:47 (Toradol) 11/30/18 14:06 [place] [id number] Radiology Main Line: [phone] DIAGNOSTIC IMAGING REPORT Patient: VIKRAM DONOVAN : 1985 Age: 33 Sex: F [id number] DOS: 11/30/18 1404 Ordering MD: PHYLLIS ANG PA-C Location: [facility] Room/Bed: PROCEDURE: CT Abdomen and Pelvis without contrast CLINICAL INDICATION: Abdominal pain TECHNIQUE: Transaxial computed tomographic images of the abdomen and pelvis were obtained without intravenous contrast. Coronal and sagittal reformatted images were provided. DICOM images are available. Radiation dose: CTDIvol (mGy) = 20.42; total DLP (mGy.cm) = 1253.5. One or more of the following dose reduction techniques were used: - Automated exposure control. - Adjustment of the mA and/or kV according to patient size. - Use of iterative reconstruction technique. COMPARISON: CT abdomen and pelvis dated 03/10/2017. FINDINGS: The visualized lung bases are clear. There is no pleural effusion. Gallbladder is surgically absent. Liver, spleen, pancreas, adrenal glands, and kidneys have normal noncontrast appearance. There is no calcific renal calculus or hydronephrosis. There is no evidence of intestinal obstruction. The appendix is normal. There is no abdominal aortic aneurysm. There is no free intraperitoneal air or fluid. Urinary bladder is decompressed. Uterus is within normal limits. There is no suspicious mesenteric or retroperitoneal lymphadenopathy. The osseous structures of the abdomen and pelvis are intact. IMPRESSION: 1. No acute intra-abdominal abnormality within limitations of a noncontrast examination. RPTAT:HAJM Physician Monique Date Time Electronically viewed and signed by Physician Monique on 11/30/2018 15:10 RM/ CC: PHYLLIS ANG PA-C [phone] Procedures/MDM EMERGENCY DEPARTMENT COURSE / MEDICAL DECISION MAKING: This is a [id number]-year-old female who comes to the emergency room secondary to complaints of abdominal pain. The patient was given IV Toradol in the department. On re-evaluation, the patient was feeling improved and serial abdominal examinations were benign. Lab results reviewed. CBC: Mild anemia but no significant acute abnormalities. Chemistry: No significant acute abnormalities UA: No evidence of urinary tract infection. Lipase: Within normal limits. Radiology: CT abdomen pelvis without contrast showed no significant acute abnormalities per the full report interpreted by the radiologist may be viewed above. The primary diagnosis is epigastric pain of unclear etiology but may be secondary to acid reflux. Other differential diagnoses included acute surgical abdomen, acute cholecystitis, acute appendicitis, diverticulitis, urinary tract infection, toxic megacolon, mesenteric ischemia, and others. Discharge: I have discussed the lab results and diagnostic findings with the patient and answered any questions or concerns. The patient was discharged with a prescription for Zofran and omeprazole. The patient was advised to followup with their PMD in 1-2 days and to return to the Emergency Department if there are any new or worsening symptoms. The patient understood and agreed with the diagnosis, treatment and plan. The patient is stable for discharge at this time. Departure Diagnosis: Primary Impression: Epigastric pain Condition: Fair Patient Instructions: Gerd (Adult) PHYLLIS ANG PA-C Nov 30, 2018 14:35
[2018-11-30] MEDS ORDERED: OMEP20CA16 PO (15:33)
[2018-11-30] MEDS ORDERED: ONDA4TAB14 PO (15:33)
[2018-11-30 16:01] VITALS: BP 112/62; PULSE 76; RESP 18
== END 2018-11-30 16:02 | disposition home or self-care (01) ==
LOC: FTE 12:04
DX: R10.13 Epigastric pain (principal); R11.0 Nausea
CPT/HCPCS: 36415; 74176; 80053; 81003; 81025; 83690; 85025; 85610; 85730; 96361; 96374; 96375; J1885; J2405; J7030; Z7502

== ENCOUNTER 2019-08-13 09:32 | Emergency (ER) | payer OTHER ==
[~2019-08-13] VITALS: Ht 162.6 cm; Wt 97.8 kg
[~2019-08-13 09:32] MED LIST changes: +ACYC800T5 PO; +HYDR-4011 PO; +NAPR-985 PO; +OMEP20CA17 PO; +PRED20TA PO
[2019-08-13 09:40] VITALS: BP 150/71; PULSE 74; RESP 18; Ht 162.6 cm; Wt 97.8 kg
[2019-08-13] MEDS ORDERED: ACYCLOVIR 800 MG TAB PO ONE (11:00)
[2019-08-13] MEDS ORDERED: predniSONE 20 MG TAB PO ONE (11:00)
== END 2019-08-13 10:34 | disposition home or self-care (01) ==
LOC: FTE 09:32
DX: B02.9 Zoster without complications (principal)
CPT/HCPCS: J7512; Z7502; Z7610; 99283